=== PATIENT | male | born 1990 | race Caucasian/White ===

== ENCOUNTER → 2017-09-05 | Outpatient (CLI) | payer OTHER ==
[~2017-09-05] MED LIST: Crutch1 EACH MISC; IBUP800 PO; Norco 5-325 Ta1 EACH PO; RXOXYACE PO
[2017-09-09 04:12] LABS: CHLAMYDIA TRACHOMATIS, NAA Positive (Negative); NEISSERIA GONORRHOEAE, NAA Negative (Negative)
== END | disposition home or self-care (01) ==
LOC: LAB SHORT 08:24 → LAB EV 08:24
PROVIDERS: Physician Assistant Surgical
DX: Z72.51 High risk heterosexual behavior (principal)
CPT/HCPCS: 87491; 87591

== ENCOUNTER → 2018-03-04 | Outpatient (CLI) | payer OTHER | END | disposition home or self-care (01) | LOC: PLD 07:19 → LAB SHORT 07:19 | DX: D11.0 Benign neoplasm of parotid gland (principal) | CPT/HCPCS: 88173 ==

== ENCOUNTER 2018-04-16 06:08 | Day surgery (SDC) | payer OTHER ==
[~2018-04-16] VITALS: Ht 180.3 cm; Wt 90.8 kg
--- NOTE | 2018-04-16 07:41 | NUR ---
04/16/18 0741 Jan Nguyen 1ST IV ATTEMPT IN RFA UNSUCCESSFUL, ORSC.BDK 2ND IV ATTEMPT IN RFA UNSUCCESSFUL, ORSC.BDK 3RD IV ATTEMPT IN RAC SUCCESSFUL, ORSC.BDK
--- NOTE | 2018-04-16 11:38 | NUR ---
04/16/18 1138 Dee Dee Walters AWAKE ALERT HOME WITH RG. VERBALIZED UNDERSTANDING OF MEDS, DRAIN AND WOUND CARE, DEMONSTRATED STRIPPING AND DRAINING COLLIN DRAIN 10 ML SEROSANGUINOUS FLUID. COLLIN ACTIVATED , TO CAR IN
== END 2018-04-16 11:00 | disposition home or self-care (01) ==
LOC: ORSCSDS 06:08
PROVIDERS: Otolaryngology
PROC: 0CB80ZZ Excision of Right Parotid Gland, Open Approach (ICD-10-PCS; principal; 2018-04-16 07:30)
DX: D11.0 Benign neoplasm of parotid gland (principal)
CPT/HCPCS: 88307; J0171; J1100; J2250; J2405; J3010; J7120

== ENCOUNTER 2019-01-27 13:00 | Emergency (ER) | payer OTHER ==
[~2019-01-27] VITALS: Ht 180.3 cm; Wt 90.7 kg
[2019-01-27] MEDS ORDERED: HYDR1TAB94 PO (14:27)
[2019-01-27] MEDS ORDERED: CRUTCH4 XX (14:28)
== END 2019-01-27 14:37 | disposition home or self-care (01) ==
LOC: ER 13:00
DX: S83.92XA Sprain of unspecified site of left knee, initial encounter (principal); S80.812A Abrasion, left lower leg, initial encounter; Z88.2 Allergy status to sulfonamides; V86.96XA Unspecified occupant of dirt bike or motor/cross bike injured in nontraffic accident, initial encounter
CPT/HCPCS: 73590; 99283-25

== ENCOUNTER 2020-06-04 10:17 | Emergency (ER) | payer OTHER ==
[~2020-06-04] VITALS: Ht 185.4 cm; Wt 86.2 kg
[~2020-06-04 10:17] MED LIST changes: +CRUTCH4 XX; +HYDR1TAB94 PO
== END 2020-06-04 12:27 | disposition home or self-care (01) ==
LOC: ER 10:17
DX: S37.30XA Unspecified injury of urethra, initial encounter (principal)
CPT/HCPCS: 99284

== ENCOUNTER 2020-10-10 09:20 | Emergency (ER) | payer OTHER ==
[~2020-10-10] VITALS: Ht 180.3 cm; Wt 90.7 kg
[2020-10-10] MEDS ORDERED: ONDA4ODT MM (11:26)
[2020-10-10] MEDS ORDERED: ALBU90OI INH (11:26)
== END 2020-10-10 11:33 | disposition home or self-care (01) ==
LOC: ER 09:20
DX: U07.1 COVID-19 (principal); R07.1 Chest pain on breathing; Z88.2 Allergy status to sulfonamides
CPT/HCPCS: 71045; 99284-25

== ENCOUNTER → 2022-12-10 | Outpatient (CLI) | payer OTHER ==
[~2022-12-10] MED LIST changes: +ALBU90OI INH; +ONDA4ODT MM
[2022-12-10 13:32] LABS: BASOPHILS ABSOLUTE AUTO 0.08 K/mm3 (0.00-0.23); BASOPHILS PERCENT AUTO 1 % (0-2); EOSINOPHILS ABSOLUTE AUTO 0.31 K/mm3 (0.00-0.68); EOSINOPHILS PERCENT AUTO 4 % (0-6); Hematocrit 46.4 % (37.0-53.0); Hemoglobin 15.8 g/dL (13.5-17.5); IMMATURE GRAN ABSOLUTE AUTO 0.02 K/mm3 (0.00-0.10); IMMATURE GRAN PERCENT AUTO 0 % (0-1); LYMPHOCYTES ABSOLUTE AUTO 1.86 K/mm3 (0.84-5.20); LYMPHOCYTES PERCENT AUTO 26 % (21-46); MONOCYTES PERCENT AUTO 8 % (4-13); Mean Corpuscular HGB 28.7 pg (26.0-34.0); Mean Corpuscular HGB Conc 34.1 g/dL (31.5-36.5); Mean Corpuscular Volume 84 fL (80-100); NEUTROPHILS ABSOLUTE AUTO 4.33 K/mm3 (1.96-9.15); NEUTROPHILS PERCENT AUTO 60 % (41-73); Platelet Count 383 K/mm3 (150-400); RDW Coefficient Variation 11.9 % (11.7-14.2); RDW Standard Deviation 35.8 fL (35.1-46.3); Red Blood Cell Count 5.51 M/mm3 (4.30-5.90)
[2022-12-10 13:43] LABS: Alanine Aminotransfer (ALT/SGP 32 U/L (12-78); Albumin, Blood 4.3 g/dL (3.4-5.0); Albumin/Globulin Ratio 1.1 (0.8-1.8); Alk Phos 70 U/L (50-136); Anion Gap 1 mmol/L (6-16); Aspartate Aminotrans (AST/SGOT 16 U/L (12-37); Bilirubin, Total 0.4 mg/dL (0.1-1.0); Blood Urea Nitrogen 14 mg/dL (8-24); Bun/Creatinine Ratio 10.3 (12.0-20.0); CHOL/HDL RATIO 3.4; CO2, Blood 30 mmol/L (21-32); Calcium, Blood 9.6 mg/dL (8.5-10.1); Chloride, Blood 108 mmol/L (98-108); Cholesterol 171 mg/dL (50-200); Creatinine, Blood 1.36 mg/dL (0.60-1.20); Globulin, Blood 3.8 g/dL (2.2-4.0); Glomerular Filtration Rate 72 (60-); Glucose, Blood 113 mg/dL (70-99); HDL Cholesterol 51 mg/dL (>39); Low Density Lipoprotein Chol 103 mg/dL (0-110); Sodium, Blood 139 mmol/L (136-145); Total Protein, Blood 8.1 g/dL (6.4-8.2); Triglycerides 86 mg/dL (30-140); Very Low Density Lipoprot Chol 17 mg/dL (6-28)
[2022-12-11 09:10] LABS: HIV AB/P24 AG SCREEN Non Reactive (Non Reactive)
== END | disposition home or self-care (01) ==
LOC: LAB 11:50 → LAB SHORT 11:50
PROVIDERS: Family Medicine
DX: Z00.01 Encounter for general adult medical examination with abnormal findings (principal)
CPT/HCPCS: 80053; 80061; 84443; 85025; 87389

== ENCOUNTER → 2023-03-14 | Outpatient (CLI) | payer OTHER | END | disposition home or self-care (01) | LOC: LAB SHORT 12:37 | DX: F10.10 Alcohol abuse, uncomplicated (principal) ==

== ENCOUNTER 2025-01-18 15:06 | Emergency (ER) | payer OTHER ==
[~2025-01-18] VITALS: Ht 180.3 cm; Wt 97.5 kg
[2025-01-18] MEDS ORDERED: Ondansetron HCl 2 MG / ML 2ML Vial IV ONE (15:25)
[2025-01-18] MEDS ORDERED: Ketorolac Tromethamine 15mg Vial IV ONE (15:25)
[2025-01-18 15:47] LABS: BASOPHILS ABSOLUTE AUTO 0.08 K/mm3 (0.00-0.23); BASOPHILS PERCENT AUTO 1 % (0-2); EOSINOPHILS ABSOLUTE AUTO 0.05 K/mm3 (0.00-0.68); EOSINOPHILS PERCENT AUTO 0 % (0-6); Hematocrit 43.9 % (37.0-53.0); Hemoglobin 14.7 g/dL (13.5-17.5); IMMATURE GRAN ABSOLUTE AUTO 0.07 K/mm3 (0.00-0.10); IMMATURE GRAN PERCENT AUTO 1 % (0-1); LYMPHOCYTES ABSOLUTE AUTO 1.62 K/mm3 (0.84-5.20); LYMPHOCYTES PERCENT AUTO 11 % (21-46); MONOCYTES ABSOLUTE AUTO 0.86 K/mm3 (0.16-1.47); MONOCYTES PERCENT AUTO 6 % (4-13); Mean Corpuscular HGB Conc 33.5 g/dL (31.5-36.5); Mean Corpuscular Volume 85 fL (80-100); NEUTROPHILS ABSOLUTE AUTO 12.05 K/mm3 (1.96-9.15); NEUTROPHILS PERCENT AUTO 82 % (41-73); NRBC ABSOLUTE 0.00 K/mm3 (0.00-0.02); NRBC Auto 0.0 /100 WBC (0.0-0.2); Platelet Count 381 K/mm3 (150-400); RDW Coefficient Variation 12.1 % (11.7-14.2); RDW Standard Deviation 37.7 fL (35.1-46.3)
[2025-01-18 16:17] LABS: Alanine Aminotransfer (ALT/SGP 39.0 U/L (12-78); Albumin, Blood 4.7 g/dL (3.4-5.0); Albumin/Globulin Ratio 1.6 (0.8-1.8); Anion Gap 8.0 mmol/L (3-11); Aspartate Aminotrans (AST/SGOT 33.0 U/L (12-37); Bilirubin, Total 0.5 mg/dL (0.1-1.0); Blood Urea Nitrogen 20.0 mg/dL (8-24); CO2, Blood 25.0 mmol/L (21-32); Calcium, Blood 9.5 mg/dL (8.5-10.1); Chloride, Blood 111.0 mmol/L (98-108); Creatinine, Blood 1.31 mg/dL (0.60-1.20); Globulin, Blood 2.9 g/dL (2.2-4.0); Glucose, Blood 80.0 mg/dL (70-99); Potassium, Blood 4.2 mmol/L (3.5-5.5); Sodium, Blood 140.0 mmol/L (136-145); Total Protein, Blood 7.6 g/dL (6.4-8.2)
[2025-01-18] MEDS ORDERED: ONDA4ODT MM (17:47)
[2025-01-18 17:58] VITALS: BP 125/80
== END 2025-01-18 17:59 | disposition home or self-care (01) ==
LOC: ER 15:06
PROVIDERS: Student in an Organized Health Care Education/Training Program
DX: S01.01XA Laceration without foreign body of scalp, initial encounter (principal); H53.8 Other visual disturbances; Z88.2 Allergy status to sulfonamides; Z79.899 Other long term (current) drug therapy; Z23 Encounter for immunization; W22.8XXA Striking against or struck by other objects, initial encounter
CPT/HCPCS: 70450; 80053; 85025; 90471; 90715; 96374; 99284-25; J1885; J2405